=== PATIENT | female | born 1980 | race Two or more races ===

== ENCOUNTER → 2023-12-17 03:59 | Outpatient (CLI) | payer BC, SELFPAY ==
--- NOTE | 2023-12-17 | DI.MAMMO_ITS ---
Exam(s) MAMMO SCREENING EXAM: MAMMO SCREENING CLINICAL HISTORY: SCREENING, Z12.31 TECHNIQUE: Mammograms were interpreted according to the usual protocol including computer analysis w [employer] CAD system, tomosynthesis and C-view imaging. COMPARISON: 2020 and 2022 from [facility] FINDINGS: The breasts are composed of heterogeneously dense fibroglandular densities, Breast Density category C . No suspicious masses or suspicious microcalcifications are seen. No skin thickening or abnormal axillary lymph nodes are seen. There has been no significant change from prior exams. IMPRESSION: BI-RADS Category 1, Negative mammogram. Yearly screening mammography is recommended. Breast Density Category C, heterogeneously Dense. The mammogram demonstrates the patient's breast tissue is dense. Dense breast tissue is very common a nd is not abnormal but dense breast tissue can make it harder to find cancer on a mammogram. Also, de nse breast tissue may increase breast cancer risk. This information about the result of the mammogram report was provided to the patient to raise their awareness. Use this report when you speak with the patient about their risks for breast cancer, which includes their family history. At that time, you may recommend additional screening tests (Ultrasound or MRI) as they might be useful based on their r isk. A negative radiographic report should not delay biopsy if a dominant or clinically suspicious mass is present. Up to ten percent of cancers are not identified on mammography. A negative report may reinforce clinical impression. Adenosis and dense breasts may obscure an underlying neoplasm. False positive reports average 6 to 10%.
== END ==
PROVIDERS: Visit Provider Student in an Organized Health Care Education/Training Program
DX: Z12.31 Encounter for screening mammogram for malignant neoplasm of breast (principal)
CPT/HCPCS: 77063; 77067

== ENCOUNTER 2024-07-12 03:30 | Outpatient (CLI) | payer BC, SELFPAY ==
[2024-07-12 13:45] LABS: Abs Immature Grans 0.05 10^3/uL (0.0-0.06); Absolute Basophil Count 0.02 10^3/uL (0.0-0.2); Absolute Eosinophil Count 0.52 10^3/uL (0.0-0.7); Absolute Lymphocyte Count 1.57 10^3/uL (1.2-3.4); Absolute Monocyte Count 0.61 10^3/uL (0.1-0.8); Absolute Neutrophil Count 7.36 10^3/uL (1.2-6.7); Basophils % 0.2 %; Eosinophils % 5.1 %; HCT 43.1 % (36.0-46.0); HGB 14.4 g/dL (11.2-15.7); Immature Grans % 0.5 %; Lymphocytes % 15.5 %; MCH 29.9 pg (27.0-33.0); MCHC 33.4 % (32.0-36.0); MCV 90 fL (80-95); MPV 8.7 fL (8.0-11.0); Neutrophils % 72.7 %; Platelet Count 255 10^3/uL (130-400); RBC 4.81 10^6/uL (3.93-5.22); RDW 12.5 % (11.7-14.6); RDW-SD 41.3 fL; WBC 10.13 10^3/uL (4.4-10.8)
[2024-07-12 14:33] LABS: ALT 24 U/L (14-59); AST 26 U/L (15-37); Albumin 4.1 g/dL (3.4-5.0); Alkaline Phosphatase 59 U/L (46-116); Anion Gap 9.3 mmol/L (3-11); BUN 11 mg/dL (7-18); CO2 26.7 mmol/L (21.0-32.0); CREATININE 0.8 mg/dL (0.55-1.02); Calcium 9.6 mg/dL (8.5-10.1); Chloride 104 mmol/L (98-107); Glucose 96 mg/dL (74-106); Potassium 4.1 mmol/L (3.5-5.1); Sodium 140 mmol/L (136-145); TSH (W/Ref FT4) 1.91 uIU/mL (0.36-3.74); Total Protein 7.9 g/dL (6.4-8.2)
[2024-07-14 11:14] LABS: IgA 216 mg/dL (85-499); IgG 884 mg/dL (610-1616)
[2024-07-14 13:00] LABS: Tissue Transglutaminase IgA <4.0 CU (<20.0)
== END 2024-07-12 03:31 | disposition home or self-care (01) ==
LOC: LBO 03:30
PROVIDERS: Visit Provider Nurse Practitioner Family
DX: R19.7 Diarrhea, unspecified (principal)
CPT/HCPCS: 36415; 80053; 82784; 84443; 85025

== ENCOUNTER 2024-07-12 18:12 | Outpatient (REF) | payer BC, SELFPAY ==
[2024-07-12 20:17] LABS: C Diff PCR Negative (Negative)
[2024-07-13 23:34] LABS: Campylobacter PCR Negative (Negative); Salmonella PCR Negative (Negative); Shiga Toxin PCR Negative (Negative); Shigella/Enteroinvasive Ecoli Negative (Negative)
[2024-07-16 17:01] LABS: Calprotectin 99.9 mcg/g
[2024-07-16 22:41] LABS: Pancreatic Elastase, F >500 mcg/g
== END 2024-07-12 18:13 | disposition home or self-care (01) ==
LOC: LBN 18:12
PROVIDERS: Visit Provider Nurse Practitioner Family
DX: R19.7 Diarrhea, unspecified (principal)
CPT/HCPCS: 87493; 87505; 82656; 83993; 87177

== ENCOUNTER 2024-11-10 04:01 | Outpatient (CLI) | payer BC, SELFPAY ==
[2024-11-10 09:28] LABS: Calculated LDL 93 mg/dL (<100); Cholesterol 180 mg/dL (<200); HDL Cholesterol 74 mg/dL (40-60); Triglyceride 65 mg/dL (<150)
[2024-11-10 18:31] LABS: Hepatitis C Ab w Rflx HCV PCR Negative (Negative)
[2024-11-10 18:37] LABS: HIV-1/2 Ag & Ab Screen Negative (Negative)
== END 2024-11-10 04:02 | disposition home or self-care (01) ==
LOC: LBO 04:02
PROVIDERS: PCP Nurse Practitioner; Visit Provider Nurse Practitioner
DX: K52.9 Noninfective gastroenteritis and colitis, unspecified (principal); Z83.2 Family history of diseases of the blood and blood-forming organs and certain disorders involving the immune mechanism; Z13.220 Encounter for screening for lipoid disorders; Z11.59 Encounter for screening for other viral diseases
CPT/HCPCS: 36415; 80061; 82787; 86803; 87389; 82784

== ENCOUNTER 2024-12-20 03:13 | Outpatient (CLI) | payer BC, SELFPAY ==
--- NOTE | 2024-12-20 08:45 | DI.MAMMO_ITS ---
Exam(s) MAMMO SCREENING EXAM: MAMMO SCREENING CLINICAL HISTORY: screening,z12.39 TECHNIQUE: Bilateral full field digital CC and MLO mammographic images were obtained with 3D tomosyn thesis and utilizing computer aided detection (CAD). COMPARISON: Available for comparison. FINDINGS: Masses/Architectural Distortion: None seen. Microcalcifications: No suspicious pleomorphic-type are seen. Skin Thickening/Nipple Retraction: None. IMPRESSION: 1. No significant interval change with no specific features of malignancy noted. 2. Unless there is more urgent need, screening mammography is recommended, as per [employer] guidelines. BI-RADS Category 1 - Negative Breast Density - Category C - Heterogeneously dense Breast density category C or D implies that the patient has dense breast tissue. Dense breast tissue is very common and is not abnormal but dense breast tissue can make it harder to find cancer on a ma mmogram. Also, dense breast tissue may increase their breast cancer risk. This information about the result of the mammogram report was provided to the patient to raise their awareness. Use this report when you speak with the patient about their risks for breast cancer, which includes their family hist ory. At that time, you may recommend for more screening tests (Ultrasound or MRI) as they might be us eful based on their risk. A negative radiographic report should not delay biopsy if a dominant or clinically suspicious mass is present. Up to ten percent of cancers are not identified on mammography. A negative report may reinforce clinical impression. Adenosis and dense breasts may obscure an underlying neoplasm. False positive reports average 6 to 10%. Patient will receive a letter notifying them of these results.
== END 2024-12-20 03:33 ==
LOC: DI 03:13
PROVIDERS: PCP Nurse Practitioner; Visit Provider Nurse Practitioner
DX: Z12.31 Encounter for screening mammogram for malignant neoplasm of breast (principal); R92.333 Mammographic heterogeneous density, bilateral breasts
CPT/HCPCS: 77063; 77067

== ENCOUNTER 2025-05-19 12:15 | Outpatient (REF) | payer BC, SELFPAY ==
--- NOTE | 2025-05-19 10:00 | PAPFT_PTH ---
PATIENT: Milvia Pradhan LOC: [facility] U#:[id number] AGE/SX: 44/F ROOM: RE05/19/[address]: Celi Harirs MD : [id number] BED: DIS: 05/19/2025 SPEC #: [id number] RECD: 05/19/25 13:31 STATUS: ALISE REQ #: [id number] BORIS: 05/19/25 10:[address]: Celi Harris DEPT: [facility] Cytology RECD BY: Yaneth Tabor ENTERED: 05/19/25 13:31 SP TYPE: PAPFT HAMMAD DR: Kassidy Trotter APRN Tissues: 1 - CX/ENDOCX FOR PAP SMEARS Procedures: PAP THIN PREP/[facility] Screening HPV DNA PROBE Comments: [id number] (HPV 16 & 18/45)
== END 2025-05-19 12:16 | disposition home or self-care (01) ==
LOC: LBN 12:15
PROVIDERS: PCP Nurse Practitioner Family; Visit Provider Obstetrics & Gynecology
DX: Z12.4 Encounter for screening for malignant neoplasm of cervix (principal)
CPT/HCPCS: 88142; 87624